=== PATIENT | female | born 1995 | race Two or more races ===

== ENCOUNTER 2016-11-20 11:49 | Observation (INO) | payer MEDICAID ==
[~2016-11-20] VITALS: Ht 160 cm; Wt 55.9 kg
[2016-11-20 12:00] VITALS: BP 101/60
== END 2016-11-20 15:25 | disposition home or self-care (01) ==
LOC: LDOP 11:49 → LDIP 13:30
PROVIDERS: ADMIT Obstetrics & Gynecology; ATTEND Obstetrics & Gynecology
DX: O46.92 Antepartum hemorrhage, unspecified, second trimester (principal); Z3A.20 20 weeks gestation of pregnancy
CPT/HCPCS: 76815; 81001; G0378

== ENCOUNTER 2017-02-09 12:04 | Outpatient (CLI) | payer MEDICAID ==
[~2017-02-09] VITALS: Ht 160 cm; Wt 61.0 kg
[2017-02-09 12:33] VITALS: BP 105/61
[2017-02-09] MEDS ORDERED: PREN1TAB60 PO (13:18)
== END 2017-02-09 13:30 | disposition home or self-care (01) ==
LOC: LDOP 12:04
PROVIDERS: ATTEND Obstetrics & Gynecology
DX: O26.893 Other specified pregnancy related conditions, third trimester (principal); O62.9 Abnormality of forces of labor, unspecified; R55 Syncope and collapse; Z3A.31 31 weeks gestation of pregnancy
CPT/HCPCS: 59025; 82962; 99211; G0463

== ENCOUNTER 2017-03-05 19:34 | Inpatient (IN) | payer MEDICAID ==
[~2017-03-05] VITALS: Ht 160 cm; Wt 63.0 kg
[~2017-03-05 19:34] MED LIST: PREN1TAB60 PO
[2017-03-05] MEDS ORDERED: OXYTOCIN 30U/ 0.9% NaCL 500ML 500 ML IV PRN (21:04)
[2017-03-05] MEDS ORDERED: OXYTOCIN 30U/ 0.9% NaCL 500ML 500 ML IV ONE (21:04)
[2017-03-05] MEDS ORDERED: BETAMETHASONE 6 MG/ML, 5ML IM ONE (21:27)
[2017-03-05] MEDS ORDERED: SODIUM CITRATE/CITRIC ACID 30 ML UDC PO PRN (21:30)
[2017-03-05] MEDS ORDERED: METOCLOPRAMIDE 5 MG/ML, 2ML IVPush PRN (21:30)
[2017-03-05] MEDS ORDERED: PENICILLIN GK 5,000,000 UNITS in DEXTROSE 5% 100 ML IVPB ONE (21:30)
[2017-03-05] MEDS ORDERED: TERBUTALINE 1 MG/ML, 1ML SQ PRN (21:30)
[2017-03-05] MEDS ORDERED: FENTANYL PF 100 MCG/2ML IV PRN (21:30)
[2017-03-05 21:48] LABS: HEMATOCRIT 37.6 % (34.6-47.8); HEMOGLOBIN 12.9 g/dL (11.7-16.4); WHITE BLOOD COUNT 12.7 x10^3/uL (3.4-10)
[2017-03-05] MEDS: LACTATED RINGERS 1,000 ML IV SCH (22:03)
[2017-03-05] MEDS: BETAMETHASONE 6 MG/ML, 5ML IM SCH (22:26)
[2017-03-05] MEDS ORDERED: OXYTOCIN 30U/ 0.9% NaCL 500ML 500 ML ONE (23:44)
[2017-03-05] MEDS ORDERED: MISOPROSTOL 200 MCG TABLET ONE (23:45)
[2017-03-05] MEDS ORDERED: LIDOCAINE 1%, 20ML ONE (23:45)
[2017-03-06] MEDS ORDERED: NEWBORN KIT ONE (00:18)
[2017-03-06] MEDS: PENICILLIN GK 2,500,000 UNITS in DEXTROSE 5% 100 ML IVPB SCH ×7 (03:15→21:30)
[2017-03-06] MEDS: D5%-LACTATED RINGERS 1,000 ML IV SCH ×4 (05:04→21:04)
[2017-03-06] MEDS ORDERED: FENTANYL PF 100 MCG/2ML ONE ×2 (05:47→07:12)
[2017-03-06] MEDS: FENTANYL PF 100 MCG/2ML IVPush PRN ×2 (05:56→08:19)
[2017-03-06] MEDS ORDERED: LACTATED RINGERS 1,000 ML IV SCH (11:16)
[2017-03-06] MEDS ORDERED: FENTANYL/BUPIV./NS/PF 250 ML EPIDCONT SCH ×2 (11:16)
[2017-03-06] MEDS ORDERED: FENTANYL/BUPIV./NS/PF 250 ML EPIDCONT ONE (11:29)
[2017-03-06] MEDS ORDERED: BUPIVACAINE/PF 0.25% ONE (11:29)
[2017-03-06] MEDS ORDERED: NALOXONE 0.4 MG/ML, 1ML IVPush PRN ×2 (11:30)
[2017-03-06] MEDS ORDERED: LACTATED RINGERS 1,000 ML IVBOLUS PRN ×2 (11:30)
[2017-03-06] MEDS ORDERED: EPHEDRINE 50 MG/ML, 1ML IVPush PRN ×2 (11:30)
[2017-03-06] MEDS: LACTATED RINGERS 1,000 ML IV SCH ×5 (12:30→21:04)
[2017-03-06] MEDS ORDERED: OXYTOCIN 30U/ 0.9% NaCL 500ML 500 ML IV PRN (14:47)
[2017-03-06] MEDS: OXYTOCIN 30U/ 0.9% NaCL 500ML 500 ML IV SCH (18:53)
[2017-03-06] MEDS ORDERED: MISOPROSTOL 200 MCG TABLET PR PRN (19:00)
[2017-03-06] MEDS ORDERED: HYDROcodone/APAP 5/325 TABLET PO PRN ×2 (19:00)
[2017-03-06] MEDS ORDERED: METHYLERGONOVINE 0.2 MG/ML IM PRN (19:00)
[2017-03-06] MEDS ORDERED: CARBOPROST TROMETHAMINE 250 MCG/ML, 1ML IM PRN (19:00)
[2017-03-06] MEDS ORDERED: ONDANSETRON 2MG/ML, 2ML IV PRN (19:00)
[2017-03-06] MEDS ORDERED: ACETAMINOPHEN 325 MG TABLET PO PRN (19:00)
[2017-03-06] MEDS: BETAMETHASONE 6 MG/ML, 5ML IM SCH (21:30)
[2017-03-06 22:00] VITALS: BP 95/69
[2017-03-07] MEDS: PENICILLIN GK 2,500,000 UNITS in DEXTROSE 5% 100 ML IVPB SCH (01:30)
[2017-03-07 02:00] VITALS: BP 122/71
[2017-03-07] MEDS: IBUPROFEN 600 MG TABLET PO PRN ×3 (02:02→19:20)
[2017-03-07 03:02] LABS: HEMATOCRIT 34.3 % (34.6-47.8); HEMOGLOBIN 11.7 g/dL (11.7-16.4); WHITE BLOOD COUNT 17.6 x10^3/uL (3.4-10)
[2017-03-07 03:19] LABS: DIFF TOTAL CELLS COUNTED 100 CELL DIFF
[2017-03-07 03:23] LABS: VERIFY COUNTS? YES
[2017-03-07] MEDS: OXYTOCIN 30U/ 0.9% NaCL 500ML 500 ML IV SCH ×2 (04:53→14:53)
[2017-03-07 08:40] VITALS: BP 99/65
[2017-03-07] MEDS ORDERED: PRENATAL VIT/IRON/FA 1 EACH TABLET PO SCH (09:00)
[2017-03-07] MEDS: DOCUSATE 100 MG CAPSULE PO PRN (11:45)
[2017-03-07 12:20] VITALS: BP 107/69
[2017-03-07 16:25] VITALS: BP 103/62
[2017-03-07 19:15] VITALS: BP 86/60
[2017-03-08] MEDS ORDERED: IBUP-1222 PO (00:18)
[2017-03-08] MEDS ORDERED: DOCU-131 PO (00:19)
[2017-03-08] MEDS: OXYTOCIN 30U/ 0.9% NaCL 500ML 500 ML IV SCH (00:53)
[2017-03-08 07:55] VITALS: BP 99/61
[2017-03-08] MEDS: IBUPROFEN 600 MG TABLET PO PRN (07:59)
[2017-03-08] MEDS: DOCUSATE 100 MG CAPSULE PO PRN (07:59)
[2017-03-08] MEDS ORDERED: DIPH,PERTUSS(ACELL),TET VAC/PF NC IM-VACC ONE ×2 (08:28→09:00)
== END 2017-03-08 14:53 | disposition home or self-care (01) | DRG 775 ==
LOC: LDOP 19:34 → LDIP 21:00 → 2NW 03-06 20:30
PROVIDERS: ADMIT Student in an Organized Health Care Education/Training Program; ATTEND Student in an Organized Health Care Education/Training Program
PROC: 10E0XZZ Delivery of Products of Conception, External Approach (ICD-10-PCS; principal; 2017-03-06)
PROC: 0KQM0ZZ Repair Perineum Muscle, Open Approach (ICD-10-PCS; 2017-03-06)
DX: O42.913 Preterm premature rupture of membranes, unspecified as to length of time between rupture and onset of labor, third trimester (principal); O60.14X0 Preterm labor third trimester with preterm delivery third trimester, not applicable or unspecified; O70.1 Second degree perineal laceration during delivery; Z3A.35 35 weeks gestation of pregnancy; Z91.040 Latex allergy status; Z37.0 Single live birth
CPT/HCPCS: 36415; 82803; 85025; 86850; 86900; 87081; 89060; 90715; J0702; J2540; J3010; J3490; J2590; J7120; J7121; Q0114

== ENCOUNTER 2017-03-11 12:10 | Emergency (ER) | payer MEDICAID ==
[~2017-03-11] VITALS: Ht 160 cm; Wt 59.4 kg
[~2017-03-11 12:10] MED LIST changes: +DOCU-131 PO; +IBUP-1222 PO
[2017-03-11] MEDS ORDERED: METOCLOPRAMIDE 5 MG/ML, 2ML IVPush ONE (13:30)
[2017-03-11] MEDS ORDERED: DIPHENHYDRAMINE 50 MG/ML, 1ML IVPush ONE (13:30)
[2017-03-11] MEDS ORDERED: KETOROLAC 30 MG/1 ML IVPush ONE (13:30)
[2017-03-11] MEDS ORDERED: SODIUM CHLORIDE FLUSH 10ML SYR IVF ONE (13:30)
[2017-03-11] MEDS ORDERED: DEXAMETHASONE 4 MG/ML, 1ML IVPush ONE (13:30)
[2017-03-11] MEDS ORDERED: SODIUM CHLORIDE 0.9% 1,000ML IVBOLUS ONE ×2 (13:30)
[2017-03-11] MEDS ORDERED: DIPHENHYDRAMINE 50 MG/ML, 1ML ONE (13:33)
[2017-03-11] MEDS ORDERED: DEXAMETHASONE 4 MG/ML, 1ML ONE (13:33)
[2017-03-11] MEDS ORDERED: KETOROLAC 30 MG/1 ML ONE (13:33)
[2017-03-11] MEDS ORDERED: METOCLOPRAMIDE 5 MG/ML, 2ML ONE (13:34)
[2017-03-11 15:33] LABS: PATH.CAST-FLAG NOT PRESENT; SPERM-FLAG NOT PRESENT; SRC-FLAG NOT PRESENT; XTAL-FLAG NOT PRESENT; YLC-FLAG NOT PRESENT
[2017-03-11 16:00] VITALS: BP 124/67
== END 2017-03-11 16:49 | disposition home or self-care (01) ==
LOC: ED 16:00
DX: G43.101 Migraine with aura, not intractable, with status migrainosus (principal)
CPT/HCPCS: 81001; 96361; 96374; 96375; 99284; J1100; J1200; J1885; J2765; J7030